=== PATIENT | male | born 1990 | race Caucasian/White ===

== ENCOUNTER 2022-11-23 20:13 | Emergency (ER) | payer MEDICARE, MEDICAID, SELFPAY ==
[2022-11-23 20:24] VITALS: BP 148/78; PULSE 86; O2SAT 97
[2022-11-23 21:00] VITALS: BP 114/56; PULSE 83; RESP 16; TEMP 37; O2SAT 98; BMI 53.1
[2022-11-23] MEDS: Lidocaine HCl 1 % MPF 5 ML VIAL SUBCUT (23:06)
[2022-11-23 23:16] VITALS: BP 116/59; PULSE 76; RESP 18; O2SAT 98
--- NOTE | 2022-11-23 23:34 | ED.GENADULT ---
HPI - General Adult General Chief complaint: General Medical Stated complaint: bleeding from scar Time Seen by Provider: 11/23/22 22:35 History of Present Illness HPI narrative: patient is a 31-year-old male status post using his classes to help his own left thigh. Patient was at [facility] sent in for further evaluation as a history of anxiety. Patient denies any systemic complaints. Related Data Allergies Allergy/AdvReac Type Severity Reaction Status Date / Time No Known Allergies Allergy Verified 11/23/22 22:59 Review of Systems Review of Systems: No nausea no vomiting no other injury Yes all other systems are reviewed and are negative COUNTS INCLUDE 234 BEDS AT THE [facility] Past Medical History Attestation statement: The following information was validated with the patient. Social History Social History Alcohol intake: never Smoked in Last 30 Days: No Use of substances other than those prescribed or required for medical reasons: No Advance Directives: No Advance Directives Information Provided: No Physical Exam ED Vital Signs: Vital Signs - 24 hr 11/23/22 21:00 11/23/22 23:16 Temperature 98.6 F Pulse Rate 83 76 Respiratory Rate 16 18 Blood Pressure 114/56 L 116/59 L Pulse Oximetry 98 98 Oxygen Delivery Method Room Air Room Air BMI result Body Mass Index 53.1 Appearance: Alert. Oriented X3. No acute distress. Eyes: Pupils equal, round and reactive to light. ENT: Pharynx normal. Neck: Normal inspection. Neck supple. No lymph nodes noted. No crepitus CVS: Normal heart rate and rhythm. Pulses normal. Normal S1 and S2 Respiratory: No respiratory distress. Breath sounds normal. No Wheezing. No rales Abdomen: Soft and nontender. No rigidity. No distention. good BS x4 Skin: Skin warm and dry. Normal skin color. Normal skin turgor. there is a 4 cm laceration to the left thigh it was explored to full depth it was down to subcutaneous tissue there is no tendon exposed patient has full range of motion at the thigh and at the knee. Extremities: No lower extremity edema. Neurovascular intact to all extremities. No Lacerations. No Rash Neuro: Oriented X 3. No motor deficit. No sensory deficit. Moving all extermities. No slurred speech Medications Administered Discontinued Medications Generic Name Dose Route Start Last Admin Trade Name Freq PRN Reason Stop Dose Admin Diphtheria/Tetanus/Acell Pertussis 0.5 ml 11/23/22 22:59 11/23/22 23:16 Diphth,Pertus(Acell),Tet Adult 0.5 Ml Syringe IM 11/23/22 23:00 Not Given .ONCE ONE Lidocaine HCl 5 ml 11/23/22 22:59 11/23/22 23:06 Lidocaine Hcl 1 % Mpf 5 Ml Vial SUBCUT 11/23/22 23:00 5 ml ONCE ONE Administration Procedures Laceration Left thigh: Site: other ( left thigh) Side (If applicable): left Size (cm): 4 Description: linear Depth: simple, single layer Local Anesthetic: lidocaine 1% Amount of anesthesia used (mL): 3 Skin layer closed with: nylon Size (cm): 4-0 Number of sutures: 3 Technique: simple, interrupted Medical Decision Making Medical Decision Making MDM Narrative: patient's wound closed. Neurovascularly intact. Tetanus is up-to-date per patient. Will discharge patient home. No evidence for any tendon injury. In stable condition. Documentation from [facility] was reviewed Differential Diagnosis Differential Diagnoses: The differential diagnosis associated with the presentation includes Laceration, tendon injury Discharge Plan Discharge Clinical Impression: Laceration of left thigh Patient Disposition: Home, Self-Care Instructions: Laceration (ED) Additional Instructions: suture removal in 9 days Referrals: Physician,Keanu J [Primary Care Provider] - ( suture removal in approximately 9 days)
--- NOTE | 2022-11-24 01:05 | MHC.EDTECH ---
call out to mati at 0026 to book transport for pt back to [facility], estimated eta given was was 0100
== END 2022-11-24 00:53 | disposition home or self-care (01) ==
PROVIDERS: Emergency Provider Emergency Medicine Emergency Medical Services
DX: S71.112A Laceration without foreign body, left thigh, initial encounter (principal); X58.XXXA Exposure to other specified factors, initial encounter; Y93.9 Activity, unspecified; Y92.9 Unspecified place or not applicable; Y99.9 Unspecified external cause status
CPT/HCPCS: 12002; 99284

== ENCOUNTER 2022-11-25 22:51 | Emergency (ER) | payer MEDICARE, MEDICAID, SELFPAY ==
[2022-11-25 22:59] VITALS: BP 122/90; PULSE 92; O2SAT 98
[2022-11-25 23:08] VITALS: BP 110/52; PULSE 90; RESP 18; TEMP 36.7; O2SAT 95; BMI 54.7
[2022-11-25 23:39] VITALS: BP 108/56; PULSE 96; RESP 16; TEMP 36.5; O2SAT 97
[2022-11-26 00:38] LABS: MANUAL DIFF FLAG NO
[2022-11-26 00:46] LABS: Basophils Absolute Auto 0.1 X10*3/uL (0.0-0.2); Basophils Percent Auto 0.9 % (0-2); Eosinophils Absolute Auto 0.3 X10*3/uL (0.0-0.4); Eosinophils Percent Auto 3.5 % (0-4); Hematocrit 41.1 % (42.0-52.0); Hemoglobin 13.5 g/dl (14.0-18.0); Imm Gran Abs Auto 0.02 X10*3/uL (0.00-0.03); Imm Gran Pct Auto 0.3 % (0.0-0.4); Lymphocytes Absolute Auto 2.8 X10*3/uL (1.2-4.9); Lymphocytes Percent Auto 36.6 % (20-40); Mean Corpuscular HGB Conc 32.8 g/dl (31.0-36.0); Mean Corpuscular Hemoglobin 27.4 pg (27.0-33.0); Mean Corpuscular Volume 83.5 fL (80.0-98.0); Mean Platelet Volume 11.2 fL (9.4-12.4); Monocytes Absolute Auto 0.6 X10*3/uL (0.1-1.2); Monocytes Percent Auto 7.2 % (2-11); Neutrophils Absolute Auto 3.9 x10*3/uL (2.0-8.3); Neutrophils Percent Auto 51.5 % (45-73); Platelet Count 250 X10*3/uL (160-400); Red Blood Count 4.92 X10*6/uL (4.60-5.80); Red Cell Distribution Width 14.6 % (11.0-16.0); White Blood Count 7.6 X10*3/uL (4.8-10.8)
[2022-11-26 00:59] LABS: Appearance Urine Clear; Color Urine Yellow; Glucose Urine UA Negative (Negative); Leukocyte Esterase Urine Negative (Negative); Nitrite Urine Negative (Negative); PH 6.5 (5.0-9.0); Specific Gravity - Urine <= 1.005 (1.005-1.025); UMIC TRIGGER UACC YES; Urine Blood Small (1+) (Negative); Urine Ketones Negative (Negative); Urine Protein Negative (Neg-Trace)
[2022-11-26 01:07] LABS: Alanine Aminotransferase 27 U/L (0-40); Albumin Level 3.8 g/dL (3.5-5.0); Alkaline Phosphatase 119 U/L (39-117); Anion Gap 15 (12-20); Aspartate Amino Transferase 19 U/L (5-37); Bilirubin Total 0.4 mg/dL (0.0-1.0); Blood Urea Nitrogen 10 mg/dL (9-16); Calcium 9.6 mg/dL (8.4-10.2); Carbon Dioxide 22 mmol/L (22-29); Chloride 106 mmol/L (96-108); Creatinine Clr Calc Pharmacy 157.9; Estimated Glomerular Filt Rate > 60; Ethanol < 10 mg/dL; Glucose Random 126 mg/dL (60-115); Sodium 139 mmol/L (135-145); Total Protein 6.5 g/dL (6.5-8.0)
[2022-11-26 01:08] LABS: Amphetamine Screen Urine Not Detected (Not Detect); Barbiturates, Urine Not Detected (Not Detect); Benzodiazepines Screen Urine Not Detected (Not Detect); Cannabinoid Screen Urine Not Detected (Not Detect); Cocaine Screen Urine Not Detected (Not Detect); Fentanyl, urine Not Detected (Not Detect); Opiate Screen Urine Not Detected (Not Detect); Phencyclidine Screen Urine Not Detected (Not Detect)
--- NOTE | 2022-11-26 01:21 | PC.NURSE ---
This RN assumed care of patient. Patient refused bloodwork initially, this RN able to establish therapeutic rapport and attempted bloodwork. Patient allowed for 1:1 tech Nerupa to attempt, bloodwork successful. Patient contracted for safety with this RN, stated that he would be able to make needs known if feeling unsafe. Patient currently has counselor (Mariola) at bedside. Patient currently laying down at this time, will continue to monitor for safety per protocols
[2022-11-26 01:38] LABS: Bacteria Urine None Seen (None Seen); Hyaline Casts Urine 0-2 /LPF (0-2); RBC Urine 0-2 /HPF (0-2); Squamous Epithelial Cell Urine 0-2 /HPF (0-2); WBC Urine 0-5 /HPF (0-5)
--- NOTE | 2022-11-26 02:15 | ED_ITS ---
HPI - General Adult General Chief complaint: Psychiatric Symptoms Stated complaint: SI, pulled out sutures from self inflicted injury Time Seen by Provider: 11/25/22 23:27 Source: patient and other Mode of arrival: EMS History of Present Illness HPI narrative: 31-year-old male is brought in by EMS from [facility] staff on a section 21 with one-to-one nursing and chronic suicidal ideation for evaluation after patient pull sutures out of the left thigh at approximately 20:00 with an episode of head banging. Patient was medicated for behavior prior to EMS transport. Patient states that he has these compelling urges the do not subside until he completes the action. Related Data Allergies Allergy/AdvReac Type Severity Reaction Status Date / Time quetiapine [From Seroquel] Allergy Swelling Verified 11/25/22 23:06 trazodone Allergy Swelling Verified 11/25/22 23:06 Review of Systems 2 Review of Systems: Pertinent positives and negatives as stated in HPI PMFSH Past Medical History Source: nursing notes reviewed Social History Social History Alcohol intake: never Advance Directives: No Advance Directives Information Provided: Yes Physical Exam ED Vital Signs: Vital Signs - 24 hr 11/25/22 23:08 11/25/22 23:39 Temperature 98.1 F 97.7 F Pulse Rate 90 96 Respiratory Rate 18 16 Blood Pressure 110/52 L 108/56 L Pulse Oximetry 95 97 Oxygen Delivery Method Room Air Room Air BMI result Body Mass Index 54.7 VITAL SIGNS: Reviewed. GENERAL: Well developed, well nourished, in no acute distress. HEAD: Normocephalic/atraumatic EYES: PERRLA, EOMI EARS: Ext canals without abnormality NOSE: Nares patent bilateral OROPHARYNX: no oral lesions noted, posterior pharynx clear NECK: Supple, no adenopathy LUNGS: Normal breath sounds. No adventitious sounds or accessory muscle use. SpO2<97> CARDIOVASCULAR: Regular rate and rhythm without noted murmurs ABDOMEN: Soft, non-tender, non-distended with bowel sounds. MUSCULOSKELETAL: No tenderness, deformities, or effusions noted on gross inspection. EXTREMITIES: No cyanosis, clubbing or edema. RUE: multiple areas of superficial cutting to arm LLE: Sutures removed but wound appears clean. SKIN: Inspection of the skin reveals no rashes NEUROLOGIC: Alert and oriented x 4. Strength and sensation to light touch were grossly intact x 4. Medical Decision Making Medical Decision Making MDM Narrative: 31-year-old male who is brought in by EMS by [facility], the do not need any evaluation at this time other than just evaluation of the wound. I looked at the wound to the left lower extremity upper thigh, it is clean, I irrigated it well and placed a small wick into the wound in it will be able out to heal secondarily. There is no surrounding erythema or induration and does not require antibiotics. The wick can be removed in 24 hours. Differential Diagnosis Differential Diagnoses: The differential diagnosis associated with the presentation includes Please see the discussion above Admission/Observation Consideration of admission/observation: Escalation of care including admission/observation considered Please see the discussion above Lab Data 11/26/22 00:34 11/26/22 00:37 Labs: Lab Results 11/26/22 11/26/22 11/26/22 Range/Units 00:34 00:37 00:49 WBC 7.6 (4.8-10.8) X10*3/uL RBC 4.92 (4.60-5.80) X10*6/uL Hgb 13.5 L (14.0-18.0) g/dl Hct 41.1 L (42.0-52.0) % MCV 83.5 (80.0-98.0) fL MCH 27.4 (27.0-33.0) pg MCHC 32.8 (31.0-36.0) g/dl RDW 14.6 (11.0-16.0) % Plt Count 250 (160-400) X10*3/uL MPV 11.2 (9.4-12.4) fL Immature Gran % (Auto) 0.3 (0.0-0.4) % Neut % (Auto) 51.5 (45-73) % Lymph % (Auto) 36.6 (20-40) % Hawkins % (Auto) 7.2 (2-11) % Eos % (Auto) 3.5 (0-4) % Baso % (Auto) 0.9 (0-2) % Lymph # (Auto) 2.8 (1.2-4.9) X10*3/uL Hawkins # (Auto) 0.6 (0.1-1.2) X10*3/uL Eos # (Auto) 0.3 (0.0-0.4) X10*3/uL Baso # (Auto) 0.1 (0.0-0.2) X10*3/uL Abs Immat Gran (auto) 0.02 (0.00-0.03) X10*3/uL Absolute Neuts (auto) 3.9 (2.0-8.3) x10*3/uL Absolute Nucleated RBC 0.000 (0.0-0.012) X10*3/uL Nucleated RBC % (auto) 0.0 (0.0-0.2) /100WBC Sodium 139 (135-145) mmol/L Potassium 4.0 (3.3-5.1) mmol/L Chloride 106 (96-108) mmol/L Carbon Dioxide 22 (22-29) mmol/L Anion Gap 15 (12-20) BUN 10 (9-16) mg/dL Creatinine 0.88 (0.5-1.4) mg/dL Estim Creat Clear Calc 157.9 Estimated GFR > 60 Random Glucose 126 H (60-115) mg/dL Calcium 9.6 (8.4-10.2) mg/dL Total Bilirubin 0.4 (0.0-1.0) mg/dL AST 19 (5-37) U/L ALT 27 (0-40) U/L Alkaline Phosphatase 119 H (39-117) U/L Total Protein 6.5 (6.5-8.0) g/dL Albumin 3.8 (3.5-5.0) g/dL Urine Color Yellow Urine Appearance Clear Urine pH 6.5 (5.0-9.0) Ur Specific [place] <= 1.005 (1.005-1.025) Urine Protein Negative (Neg-Trace) mg/dL Urine Glucose (UA) Negative (Negative) mg/dL Urine Ketones Negative (Negative) mg/dL Urine Blood Small (1+) H (Negative) Urine Nitrite Negative (Negative) Ur Leukocyte Esterase Negative (Negative) Urine RBC 0-2 (0-2) /HPF Urine WBC 0-5 (0-5) /HPF Ur Squamous Epith Cells 0-2 (0-2) /HPF Urine Bacteria None Seen (None Seen) Hyaline Casts 0-2 (0-2) /LPF Urine Opiates Screen Not Detected (Not Detect) Urine Fentanyl Screen Not Detected (Not Detect) Ur Barbiturates Screen Not Detected (Not Detect) Ur Phencyclidine Scrn Not Detected (Not Detect) Ur Amphetamines Screen Not Detected (Not Detect) U Benzodiazepines Scrn Not Detected (Not Detect) Urine Cocaine Screen Not Detected (Not Detect) U Marijuana (THC) Screen Not Detected (Not Detect) Ethyl Alcohol < 10 mg/dL Discharge Plan Discharge Clinical Impression: Visit for wound check Patient Disposition: Home, Self-Care Additional Instructions: Okay to leave wound as is, remove the wick and 24 hours. Apply antibiotic ointment like bacitracin to any superficial cutting sites. Return to the ER for any fevers, chills, redness or swelling or purulence drainage.
[2022-11-26 02:17] VITALS: BP 97/53; PULSE 86; RESP 16; TEMP 36.7; O2SAT 98
--- NOTE | 2022-11-26 06:15 | PC.NURSE ---
assumed care of pt at this time, pt discharged and awaiting ambulance ride back to [facility] in [place]. observer in [place] at bedside
[2022-11-26 06:19] VITALS: BP 118/62; PULSE 86; RESP 16; TEMP 36.4; O2SAT 98
== END 2022-11-26 06:50 | disposition home or self-care (01) ==
PROVIDERS: Emergency Provider Student in an Organized Health Care Education/Training Program
DX: R45.851 Suicidal ideations (principal); Z48.00 Encounter for change or removal of nonsurgical wound dressing; Z79.899 Other long term (current) drug therapy
CPT/HCPCS: 36415; 80053; 80307; 81001; 81003; 85025; 99284

== ENCOUNTER 2022-11-27 00:27 | Emergency (ER) | payer MEDICARE, MEDICAID, SELFPAY ==
[2022-11-27 00:40] VITALS: BP 112/59; BP 158/68; PULSE 84; PULSE 87; RESP 14; TEMP 36.5; O2SAT 99; BMI 38.6
--- NOTE | 2022-11-27 00:45 | PC.NURSE ---
patient reports lifting a whiteboard up and stumbling backwards, he fell and hit the back of his head on a bannister. Per staff he was unconscious for about 2 seconds then came to. Staff provided him with Tylenol which he stated helped for a little bit but he developed a big headache. Pt reports that the headache travels around to different parts of his head. No dizziness at this time, no nausea and no vomiting Patient is in clothing from [facility], no ligature risk identified, patient has 1:1 staff from [facility] as well as 1:1 staff here for safety due to SI risk
--- NOTE | 2022-11-27 01:24 | ED.FALL ---
HPI - Fall General Chief Complaint: Head Injury Stated Complaint: injury Time Seen by Provider: 11/27/22 00:49 Source: patient and other Mode of arrival: ambulatory History of Present Illness HPI Narrative: 31-year-old patient who is brought in for evaluation after a fall backwards with a strike of his head on the banister that was witnessed by staff. Patient is endorsing a very transient loss of consciousness and no history of blood thinners. Related Data Allergies Allergy/AdvReac Type Severity Reaction Status Date / Time quetiapine [From Seroquel] Allergy Swelling Verified 11/25/22 23:06 trazodone Allergy Swelling Verified 11/25/22 23:06 Review of Systems Review of Systems: Pertinent positives and negatives as stated in HPI [facility] Past Medical History Source: nursing notes reviewed Social History Social History Alcohol intake: never Smoked in Last 30 Days: No Use of substances other than those prescribed or required for medical reasons: No Physical Exam Vital Signs: Vital Signs: Last Vital Signs Temp 97.7 F 11/27/22 00:40 Pulse 99 11/27/22 02:13 Resp 14 11/27/22 00:40 BP 101/59 L 11/27/22 02:13 Pulse Ox 99 11/27/22 00:40 O2 Del Method Room Air 11/27/22 00:40 BMI result Body Mass Index 38.6 VITAL SIGNS: Reviewed. GENERAL: Well developed, well nourished, in no acute distress. HEAD: Normocephalic/atraumatic EYES: PERRLA, EOMI EARS: Ext canals without abnormality NOSE: Nares patent bilateral OROPHARYNX: no oral lesions noted, posterior pharynx clear NECK: Supple, no adenopathy LUNGS: Normal breath sounds. No adventitious sounds or accessory muscle use. SpO2<99> CARDIOVASCULAR: Regular rate and rhythm without noted murmurs ABDOMEN: Soft, non-tender, non-distended with bowel sounds. MUSCULOSKELETAL: No tenderness, deformities, or effusions noted on gross inspection. EXTREMITIES: No cyanosis, clubbing or edema. SKIN: Inspection of the skin reveals no rashes, superficial lacerations to right upper extremity, the same as last time NEUROLOGIC: Alert and oriented x 4. Strength and sensation to light touch were grossly intact x 4. Medical Decision Making Medical Decision Making [facility] Narrative: 31-year-old male with history and clinical presentation consistent with mechanical fall with transient loss of consciousness, there are no clinical findings of scalp injury. There are no focal deficits. Will proceed with orthostatics and if not positive will discharge back to facility. Patient was worked up here yesterday without acute findings. I reviewed the orthostatics on the patient which demonstrates a drop in blood pressure, but is my interpretation that this may be secondary to patient's medications such as gabapentin and/or clonazepam dosing. Also recommend increase oral hydration, there is no physical impediment to patient drinking more water. Differential Diagnosis Differential Diagnoses: The differential diagnosis associated with the presentation includes Please see the discussion above Admission/Observation Consideration of admission/observation: Escalation of care including admission/observation considered Please see the discussion above Discharge Plan Discharge Clinical Impression: Fall with no injury, Mild dehydration Patient Disposition: Xfer Other Instructions: Fall Prevention (ED), Dehydration (ED) Additional Instructions: 1. Resume all home medications as prescribed. 2. Consider medication adjustment if patient continues to feel lightheaded as this may be contributing to the falls.
[2022-11-27 02:10] VITALS: BP 127/59; PULSE 86
[2022-11-27 02:11] VITALS: BP 106/62; PULSE 90
[2022-11-27 02:13] VITALS: BP 101/59; PULSE 99
--- NOTE | 2022-11-27 02:21 | PC.NURSE ---
patient resting on stretcher in hallways, offers no complaints to this RN. Pt was beginning to get agitated earlier d/t 1:1 sitter not letting him walk around. This RN explained to patient that he cannot walk around and has to stay in bed. Pt agreed but verbalizes being upset about it
== END 2022-11-27 03:37 | disposition other institution (70) ==
LOC: HO.ED 02:47
PROVIDERS: Emergency Provider Student in an Organized Health Care Education/Training Program
DX: E86.0 Dehydration (principal); R51.9 Headache, unspecified
CPT/HCPCS: 99283; 99284

== ENCOUNTER 2023-01-07 19:42 | Emergency (ER) | payer MEDICARE, MEDICAID, SELFPAY ==
--- NOTE | ~2023-01-07 | XR_ITS ---
EXAMINATION: XR FOOT, LEFT CLINICAL INFORMATION: Trauma 3 weeks ago COMPARISON: None available. TECHNIQUE: AP, lateral, and oblique views of the left foot. FINDINGS: Bones are in normal anatomic alignment with no acute fracture or dislocation seen. Small calcaneal heel spur is noted at the attachment point of the plantar aponeurosis. No radiopaque foreign body appreciated. Mild soft tissue swelling of the forefoot. XR/XR foot LT min 3V IMPRESSION: Mild soft tissue swelling but no acute fracture or dislocation.
[2023-01-07 19:52] VITALS: BP 138/92; PULSE 91; O2SAT 99
[2023-01-07 19:59] VITALS: BP 137/83; PULSE 93; RESP 16; O2SAT 98
[2023-01-07 20:08] VITALS: BMI 51.1
--- NOTE | 2023-01-07 20:09 | ED_ITS ---
HPI - General Adult General Chief complaint: Extremity Injury, Lower Stated complaint: FREQUENT URINATION FOOT PAIN Time Seen by Provider: 01/07/23 19:59 Source: patient Limitations: no limitations History of Present Illness HPI narrative: 32 years old past medical history of anxiety, depression, fibromyalgia, presents emergency room for evaluation of left foot pain. Patient reports that during and anger outburst 3 weeks ago he kicked a wall several time and that since then his left foot is being sore. Patient reports that pain is moderate in intensity, localized on the lateral aspect of his foot. Patient has been able to weightbear. In addition patient reports that he has being having increased urinary frequency for which a UA was done last Friday and which was negative. Patient reports that he discussed this finding with his doctor at [facility] and that they will stop TCA. Discussed case with [facility] staff at bedside, patient has expressed suicidal ideation and homicidal ideation however the concern today is not psychiatric and is just to make sure he does not have a fracture. Related Data Allergies Allergy/AdvReac Type Severity Reaction Status Date / Time quetiapine [From Seroquel] Allergy Swelling Verified 11/25/22 23:06 trazodone Allergy Swelling Verified 11/25/22 23:06 Review of Systems 2 Review of Systems: Yes all other systems are reviewed and are negative [facility] Social History Social History Alcohol intake: never Advance Directives: No Advance Directives Information Provided: No Physical Exam ED Vital Signs: Vital Signs - 24 hr 01/07/23 19:59 Pulse Rate 93 Respiratory Rate 16 Blood Pressure 137/83 Pulse Oximetry 98 Oxygen Delivery Method Room Air BMI result Body Mass Index 51.1 General: Alert, Not in Distress Skin: No rash, warm HEENT: Atraumatic, No Exudate or Pharyngeal Erythema Resp: Normal Breath sounds bilaterally Cardio: Regular rate and Rhythm, Normal S1, S2 ABD: Abd soft, non tender, no guarding or rebound. Normal Bowel sounds. : No cva tenderness, no suprapubic tenderness Neuro: Alert, oriented x4, PERRL Strenght 5/5 on all extremities Sensation is preserved in both lower and upper extremities Index to nose: normal Cranial Nerves II-XII grossly intact No dysarthria, or aphasia No neglet. Visual vasquez are normal bilaterally MSK: NV intact on all 4 extremities. mild tenderness on palpation of the lateral aspect of the Left foot. L Ankle not deformed with normal ROM Psych: Cooperative, SI and HI. Course Reevaluation(s) Reevaluation #1: XR foot was unremarkable. Likely pain is secondary to foot contusion. UA pending. Time: 20:38 Reevaluation #2: UA unremarkable. unllikely UTI. Will hold on antibiotics. Will DC back to facility. Time: 21:31 Medications Administered Discontinued Medications Generic Name Dose Route Start Last Admin Trade Name Meri PRN Reason Stop Dose Admin Acetaminophen 975 mg 01/07/23 20:08 01/07/23 20:41 Acetaminophen 325 Mg Tablet PO 01/07/23 20:09 975 mg ONCE ONE Administration Ibuprofen 600 mg 01/07/23 20:08 01/07/23 20:40 Ibuprofen 600 Mg Tablet PO 01/07/23 20:09 600 mg ONCE ONE Administration Medical Decision Making Medical Decision Making MDM Narrative: 32 years old with history of SI and HI, presents emergency room for evaluation of left foot pain. Foot not deformed, NV intact. Patient kicked a wall several times few weeks ago. Impression: foot contusion, Foot fracture, UTI, medication reaction Plan: imaging, analgesia, UA Admission/Observation Consideration of admission/observation: Escalation of care including admission/observation considered Staff not concerned for SI or HI Lab Data Labs: Lab Results 01/07/23 Range/Units 20:43 Urine Color Yellow Urine Appearance Clear Urine pH 6.0 (5.0-9.0) Ur Specific [place] 1.010 (1.005-1.025) Urine Protein Negative (Neg-Trace) mg/dL Urine Glucose (UA) Negative (Negative) mg/dL Urine Ketones Negative (Negative) mg/dL Urine Blood Negative (Negative) Urine Nitrite Negative (Negative) Ur Leukocyte Esterase Negative (Negative) Independent Interpretation I performed an independent interpretation of an: Plain X-Ray (XR foot: no fracture) Discharge Plan Discharge Clinical Impression: Contusion of foot Patient Disposition: Home, Self-Care Instructions: Foot Contusion (ED) Additional Instructions: You were seen emergency room for foot pain. X-ray did not show any fracture Likely pain is secondary to foot contusion. Continue to keep foot elevated when at rest, you can use Tylenol 1000 mg up to 4 times a day for pain control.
[2023-01-07] MEDS: Ibuprofen 600 MG TABLET PO (20:40)
[2023-01-07] MEDS: Acetaminophen 325 MG TABLET 975 MG PO (20:41)
[2023-01-07 20:51] LABS: Appearance Urine Clear; Color Urine Yellow; Glucose Urine UA Negative (Negative); Leukocyte Esterase Urine Negative (Negative); Nitrite Urine Negative (Negative); Urine Blood Negative (Negative); Urine Ketones Negative (Negative); Urine Protein Negative (Neg-Trace)
[2023-01-07 21:40] VITALS: BP 132/82; PULSE 85; RESP 18; O2SAT 95
--- NOTE | 2023-01-07 22:07 | PC.NURSE ---
pt awaiting transport back to [facility]
== END 2023-01-07 22:57 | disposition home or self-care (01) ==
PROVIDERS: Emergency Provider Student in an Organized Health Care Education/Training Program
DX: S90.32XA Contusion of left foot, initial encounter (principal); W22.09XA Striking against other stationary object, initial encounter; Y93.89 Activity, other specified; Y92.049 Unspecified place in boarding-house as the place of occurrence of the external cause; Y99.9 Unspecified external cause status
CPT/HCPCS: 73630; 81003; 99283; 99284

== ENCOUNTER 2024-03-27 01:14 | Inpatient (IN) | payer MEDICARE, MEDICAID, SELFPAY ==
[2024-03-27 03:20] VITALS: BMI 52.5
--- NOTE | 2024-03-27 04:34 | PC.ADMIT ---
Darion is a 33 year old transgender female to male admitted on a 12b for self injurious urges and reporting that he wanted to overdose on his prescription medications. Darion is alert and oriented X's 4. he is cooperative but hyper-verbal and tangential with rapid pressured speech. He is difficult to redirect and has a hard time staying on task. He states that he wants the doctor to approve [him] to be admitted to a [facility]. I need to have a long hospitalization. A few days or a week here is not going to be enough. I need to go to like [facility] or something. I hope they're not going to do what all the other hospital do. You're not going to just have me here for a couple of days and then discharge me right? I need like 3 or 4 months to be able to see if the medications are really working and to see if I have really learned the coping techniques. Darion also reports that he has auditory/visual hallucinations. I see things like fire and stuff like that when I wake up but I think it's dream related because it only happens just as I'm waking up. I have 2 others inside of me one is 'Jacque Orlando' and the other is 'The Beast'. Jacque Orlando is like my protector he runs around with his little foam sword and his plastic shield and he helps me stop The Beast. Jacque Orlando runs around saying 'I'm here to stay I'm here to play'. The Beast is the one that tells me to hurt myself. When I get really angry, out of control, and start thinking about hurting myself or people that's all The Beast. I've been hospitalized over 60 times. I've been trained in all the techniques you guys use to hold people or to restrain them. I know how to get out of everything. I know to use an alligator move, I spin twist or turn around causing all you guys to crash into each other. Last time I was restrained it took 10 men to get me into the chair. I'm very sneaky. If I want to hurt myself or to punish myself I will take things and you wont even know. I've put entire pencils into my leg. I've put crayons into it too. If I want to do it you guys will never see me take anything and you wont find me. I'm good at hiding in the bathroom or some other hidden place and by the time you find me I will have already cut myself or ripped my arm open . all admission documentation completed, patient orient to the unit and placed on Q5 minute safety check r/t reports of urges to engage in self injurious behaviors.
[2024-03-27 07:44] VITALS: BP 123/62; PULSE 88; RESP 16; TEMP 36.6; O2SAT 96
[2024-03-27 07:57] LABS: Alanine Aminotransferase 33 U/L (0-40); Albumin Level 4.3 g/dL (3.5-5.0); Anion Gap 13 (12-20); Aspartate Amino Transferase 24 U/L (5-37); Bilirubin Total 0.7 mg/dL (0.0-1.0); Blood Urea Nitrogen 11 mg/dL (9-16); Calcium 9.7 mg/dL (8.4-10.2); Carbon Dioxide 28 mmol/L (22-29); Chloride 105 mmol/L (96-108); Creatinine Clr Calc Pharmacy 126.7; Estimated Glomerular Filt Rate > 60; Glucose Random 99 mg/dL (60-115); Potassium 4.4 mmol/L (3.3-5.1); Sodium 142 mmol/L (135-145); Total Protein 7.6 g/dL (6.5-8.0)
[2024-03-27 08:12] LABS: Alkaline Phosphatase 89 U/L (39-117)
--- NOTE | 2024-03-27 10:33 | P.HPPS_ITS ---
HPI Date of Service: 03/27/24 Chief Complaint: unspecified PTSD, personality D/O unspecified Sources of Information: patient interviewed, chart reviewed and crisis/core team assessment reviewed HPI Subjective Notes: Section 12B Narrative: The patient is a 33-year-old transgender male, currently homeless, recently relocated from [place] to [place] a week ago with a past history of mood disorder, several psychiatric admissions and self-harming behavior. The patient reported that he left the detention on [place] and moved to live with family [place]. He spent a few days in a detention and later on at another facility. He walking to the emergency room of [facility] in [place] complaining of suicidal ideation. The patient reported that he has multiple personality disorder, that he usually gets suicidal and self harms and he admitted that he had been admitted several times into the hospital for self- harming behavior. He was assessed by crisis and transferring to this facility for psychiatric stabilization. While he was in the unit, after the assessment of nursing, the patient grabbed a fork and he opened a wound that he had on his leg stating that the devil and the voices were telling to do that. Even though that he complained of psychotic symptoms the patient is well oriented, able to respond to redirection and without a clear evidence of thought process disorder. During the intake interview, I explained him that since he had been self-harming we can not allow him to be in the kitchen by himself, we decided to put some safety measures to avoid self-harming and I contact the hospitalist team for assessment of his lesion in the leg. The patient stated that he did not do this for attention seeking or secondary gain since and he was very worried about housing and other entitlements. He stated that he feels worse since the disease close to the 8th anniversary of a miscarriage that he had. We did a medication reconciliation and he had been taking gabapentin Zyprexa and Valium. We are keeping him on 5 minute checks. Past Psychiatric History: As per the patient he had been admitted more than 20 times in different facilities in [place] and he was in a detention while he was residing in [place]. He recently moved to [place] 2 weeks ago. Medical Evaluation Reviewed: Hospitalist Eval Pending [facility] Social History: Homeless, no social support as per the patient Substance History: Denies Trauma History: Reports a long history of trauma. Diagnostics Vital Signs (24Hr): Vital Signs - 24 hr 03/27/24 07:44 Temperature 97.8 F Pulse Rate 88 Respiratory Rate 16 Blood Pressure 123/62 Pulse Oximetry 96 Oxygen Delivery Method Room Air BMI result Body Mass Index 52.5 Labs 03/27/24 07:26 Labs: Laboratory Results - last 48 hr 03/27/24 07:26 Sodium 142 Potassium 4.4 Chloride 105 Carbon Dioxide 28 Anion Gap 13 BUN 11 Creatinine 1.05 Estim Creat Clear Calc 126.7 Estimated GFR > 60 Random Glucose 99 Calcium 9.7 Total Bilirubin 0.7 AST 24 ALT 33 Alkaline Phosphatase 89 Total Protein 7.6 Albumin 4.3 Meds/Allergies Meds Home Medications ?Medication ?Instructions ?Recorded ?Confirmed ?Type diazepam 5 mg tablet 5 mg PO TID 03/27/24 03/27/24 History diphenhydramine HCl 50 mg capsule 50 mg PO BEDTIME PRN Insomnia 03/27/24 03/27/24 History gabapentin 800 mg tablet 800 mg PO TID 03/27/24 03/27/24 History olanzapine 10 mg tablet 10 mg PO BEDTIME 03/27/24 03/27/24 History oxybutynin chloride 5 mg tablet 5 mg PO BID 03/27/24 03/27/24 History pantoprazole 40 mg tablet,delayed 40 mg PO DAILY 03/27/24 03/27/24 History release propranolol 20 mg tablet 20 mg PO TID 03/27/24 03/27/24 History tolterodine 2 mg capsule,extended 2 mg PO DAILY 03/27/24 03/27/24 History release 24 hr (Detrol [facility]) Allergies Allergies Allergy/AdvReac Type Severity Reaction Status Date / Time quetiapine [From Seroquel] Allergy Swelling Verified 11/25/22 23:06 trazodone Allergy Swelling Verified 11/25/22 23:06 fluoxetine [From Prozac] AdvReac Dry Mucus Verified 03/27/24 03:24 Membranes Mental Status Exam Mental Status Exam Patient Appearance: Unkempt Patient Orientation: Person, Place and Situation Level of Consciousness: Awake and Appropriate Patient Behavior: Appropriate and Guarded Mood Description: Calm Affect Description: Constricted Ability to Follow Directions: Good Speech Pattern: Clear Hallucinations: Auditory (Reports auditory hallucinations but there is no evidence of responding to internal stimuli) Delusions: Paranoid Ideation Thought Process: Goal Oriented and Linear Thought Content: positive for [place] and positive for Circumstantial Judgement: Poor Assessment & Plan Assessment & Plan (1) Psychotic disorder: Status: Acute Code(s): F29 - Unspecified psychosis not due to a substance or known physiological condition (2) Mood disorder: Status: Acute Code(s): F39 - Unspecified mood [affective] disorder (3) Personality disorder: Status: Acute Code(s): F60.9 - Personality disorder, unspecified Plan The patient is a 33-year-old male transgender female to male, resident relocated in [place] from [place] that used to be on group homes and had several admissions into the hospital for self-harming behavior and psychosis. The patient stated that he is feeling suicidal and he was looking for help. While he was in the unit he open with a fork a wanted he has on his LEs stating that the voices were forced into do that. 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 Plan 1. Gather collateral information. 2. Continue with Zyprexa gabapentin and Valium as per med reconciliation form. 3. Referral to hospitalist for medical clearance. 4. Reassessment with results. 5. 5 minute checks but the patient is restricted from the kitchen to avoid self- harming behavior. Patient educated on: diagnosis Reason for continued inpatient stay Substantial Risk for: inability to function, rapid decompensation and med/psych decompensation Statement Statement: I have reviewed the history and physical and performed a pertinent examination on my patient. No changes have occurred unless specified. If the History and Physical was not performed prior to admission, the Hospitalist's service will be consulted for completing the admission physical. Time Spent With Patient Time: Total time managing care of this patient today __20__ minutes.
--- NOTE | 2024-03-27 11:35 | P.CONHOSP_ITS ---
History of Present Illness Data of Consult Service Date: 03/27/24 Primary Care Provider: Petty Fallon MD HPI Reason for consult: Admission H&P Pt is a 33-year-old female with a PMH significant for?HTN, fibromyalgia, anxiety, and depression who is admitted to [facility] psychiatry unit for . Medical consult for admission H&P. ? Labs reviewed, significant for PMFSH Social History Household Members: Other Household Members Other:: rent a room Housing: House Do you presently have visiting nurse or other home services: No Alcohol intake: never Patient Tobacco Use Status: Never used Tobacco Use of substances other than those prescribed or required for medical reasons: No Currently Displaying Signs/Symptoms of Drug Intoxication Withdrawal: No Any prior treatment program specific to substance use: No Have you been hit, kicked, punched, or otherwise hurt by someone within the past year? If so, by whom?: No Do you feel safe in your current relationship?: No Current Relationship Is there a partner from a previous relationship who is making you feel unsafe now?: No Are you made to feel afraid or neglected: No Advance Directives: No Advance Directives Information Provided: Yes Do you have thoughts of harming others: None Do you have a plan to hurt others: No Plan Recently lost weight without trying: Yes How much weight loss: 24-33 pounds Eating poorly because of decreased appetite: Yes Nutrition screen score: 6 Nutrition Risks: No Nutritional Risk Poor oral hygiene: No Meds Allergies Allergy/AdvReac Type Severity Reaction Status Date / Time quetiapine [From Seroquel] Allergy Swelling Verified 11/25/22 23:06 trazodone Allergy Swelling Verified 11/25/22 23:06 fluoxetine [From Prozac] AdvReac Dry Mucus Verified 03/27/24 03:24 Membranes Active Medications: Current Medications Acetaminophen (Acetaminophen 325 Mg Tablet) 650 mg PO Q6H PRN PRN Reason: Headache/Pain Mild Scale (1-3) Al Hydroxide/Mg Hydroxide (Magnesium Hydrox/Alum Hydrox 30 Ml Oral.Susp) 30 ml PO Q6H PRN PRN Reason: Heartburn/Nausea Diazepam (Diazepam 5 Mg Tablet) 5 mg PO TID [facility] Diphenhydramine HCl (Diphenhydramine Hcl 25 Mg Capsule) 50 mg PO BEDTIME PRN PRN Reason: Insomnia Gabapentin (Gabapentin 400 Mg Capsule) 800 mg PO TID [facility] Hydroxyzine HCl (Hydroxyzine Hcl 25 Mg Tablet) 25 mg PO Q6H PRN PRN Reason: Anxiety Magnesium Hydroxide (Milk Of Magnesia 30 Ml Oral.Susp) 30 ml PO DAILY PRN PRN Reason: Constipation Nicotine Polacrilex (Nicotine Polacrilex 2 Mg Gum) 2 mg BUCCAL Q2H PRN PRN Reason: Nicotine Cravings Olanzapine (Olanzapine 10 Mg Tablet) 10 mg PO BEDTIME [facility] Oxybutynin Chloride (Oxybutynin Chloride Er 5 Mg Tab.Er.24) 5 mg PO DAILY [facility] Pantoprazole Sodium (Pantoprazole Sodium 20 Mg Tablet.Dr) 40 mg PO DAILY [facility] Propranolol HCl (Propranolol Hcl 20 Mg Tablet) 20 mg PO TID [facility]; Protocol Home Medications ?Medication ?Instructions ?Recorded ?Confirmed ?Last Taken ?Type diazepam 5 mg tablet 5 mg PO TID 03/27/24 03/27/24 Unknown History diphenhydramine HCl 50 mg capsule 50 mg PO BEDTIME PRN Insomnia 03/27/24 03/27/24 Unknown History gabapentin 800 mg tablet 800 mg PO TID 03/27/24 03/27/24 Unknown History olanzapine 10 mg tablet 10 mg PO BEDTIME 03/27/24 03/27/24 Unknown History oxybutynin chloride 5 mg tablet 5 mg PO BID 03/27/24 03/27/24 Unknown History pantoprazole 40 mg tablet,delayed 40 mg PO DAILY 03/27/24 03/27/24 Unknown History release propranolol 20 mg tablet 20 mg PO TID 03/27/24 03/27/24 Unknown History tolterodine 2 mg capsule,extended 2 mg PO DAILY 03/27/24 03/27/24 Unknown History release 24 hr (Detrol [facility]) Physical Exam 2 Vital Signs and Narrative: Vital Signs: Last Vital Signs Temp 97.8 F 03/27/24 07:44 Pulse 88 03/27/24 07:44 Resp 16 03/27/24 07:44 BP 123/62 03/27/24 07:44 Pulse Ox 96 03/27/24 07:44 O2 Del Method Room Air 03/27/24 07:44 BMI result Body Mass Index 52.5 Results Labs 03/27/24 07:26 Labs: Laboratory Results - last 24 hr 03/27/24 07:26 Anion Gap 13 Estim Creat Clear Calc 126.7 Estimated GFR > 60 Random Glucose 99 Calcium 9.7 Total Bilirubin 0.7 AST 24 ALT 33 Alkaline Phosphatase 89 Total Protein 7.6 Albumin 4.3
[2024-03-27] MEDS: oxyBUTYnin chloride ER 5 MG TAB.ER.24 PO (11:39)
[2024-03-27] MEDS: Pantoprazole Sodium 20 MG TABLET.DR 40 MG PO (11:40)
--- NOTE | 2024-03-27 11:40 | PHA.MEDREC ---
Pharmacy Consult ? Medication Reconciliation Pharmacy has completed the medication reconciliation. REVIEWED MED REC DONE BY NURSING: RN CALLED [facility] IN [place] ([phone]) TO CONFIRM MEDICATIONS AND SPOKE TO DEZ.
--- NOTE | 2024-03-27 14:44 | HO.PM.IMCN ---
History of Present Illness Data of Consult Service Date: 03/27/24 Primary Care Provider: Petty Fallon MD HPI 33-year-old transgender man transferred from out of town with a history of mental health illness, GERD admitted to psychiatric floor for mental health care, suicidal ideation. Vital signs are stable, BNP within normal limits Review of Systems Review of Systems: Denies any recent fever chills or decrease in appetite respiratory denies any shortness of breath coverage production cardiovascular is adjustment of any PND or edema gastrointestinal denies any dysphagia abdominal pain nausea vomiting or diarrhea genitourinary denies any dysuria frequency or hematuria musculoskeletal denies any joint pain or swelling neuropsych denies any weakness or seizures all other systems reviewed are negative [facility] Social History Household Members: Other Household Members Other:: rent a room Housing: House Do you presently have visiting nurse or other home services: No Alcohol intake: never Patient Tobacco Use Status: Never used Tobacco Use of substances other than those prescribed or required for medical reasons: No Currently Displaying Signs/Symptoms of Drug Intoxication Withdrawal: No Any prior treatment program specific to substance use: No Have you been hit, kicked, punched, or otherwise hurt by someone within the past year? If so, by whom?: No Do you feel safe in your current relationship?: No Current Relationship Is there a partner from a previous relationship who is making you feel unsafe now?: No Are you made to feel afraid or neglected: No Advance Directives: No Advance Directives Information Provided: Yes Do you have thoughts of harming others: None Do you have a plan to hurt others: No Plan Recently lost weight without trying: Yes How much weight loss: 24-33 pounds Eating poorly because of decreased appetite: Yes Nutrition screen score: 6 Nutrition Risks: No Nutritional Risk Poor oral hygiene: No Meds Allergies Allergy/AdvReac Type Severity Reaction Status Date / Time quetiapine [From Seroquel] Allergy Swelling Verified 11/25/22 23:06 trazodone Allergy Swelling Verified 11/25/22 23:06 fluoxetine [From Prozac] AdvReac Dry Mucus Verified 03/27/24 03:24 Membranes Active Medications: Current Medications Acetaminophen (Acetaminophen 325 Mg Tablet) 650 mg PO Q6H PRN PRN Reason: Headache/Pain Mild Scale (1-3) Al Hydroxide/Mg Hydroxide (Magnesium Hydrox/Alum Hydrox 30 Ml Oral.Susp) 30 ml PO Q6H PRN PRN Reason: Heartburn/Nausea Diazepam (Diazepam 5 Mg Tablet) 5 mg PO TID [facility] Diphenhydramine HCl (Diphenhydramine Hcl 25 Mg Capsule) 50 mg PO BEDTIME PRN PRN Reason: Insomnia Gabapentin (Gabapentin 400 Mg Capsule) 800 mg PO TID [facility] Hydroxyzine HCl (Hydroxyzine Hcl 25 Mg Tablet) 25 mg PO Q6H PRN PRN Reason: Anxiety Magnesium Hydroxide (Milk Of Magnesia 30 Ml Oral.Susp) 30 ml PO DAILY PRN PRN Reason: Constipation Nicotine Polacrilex (Nicotine Polacrilex 2 Mg Gum) 2 mg BUCCAL Q2H PRN PRN Reason: Nicotine Cravings Olanzapine (Olanzapine 10 Mg Tablet) 10 mg PO BEDTIME [facility] Oxybutynin Chloride (Oxybutynin Chloride Er 5 Mg Tab.Er.24) 5 mg PO DAILY [facility] Last Admin: 03/27/24 11:39 Dose: 5 mg Pantoprazole Sodium (Pantoprazole Sodium 20 Mg Tablet.Dr) 40 mg PO DAILY [facility] Last Admin: 03/27/24 11:40 Dose: 40 mg Propranolol HCl (Propranolol Hcl 20 Mg Tablet) 20 mg PO TID [facility]; Protocol Home Medications ?Medication ?Instructions ?Recorded ?Confirmed ?Last Taken ?Type diazepam 5 mg tablet 5 mg PO TID 03/27/24 03/27/24 Unknown History diphenhydramine HCl 50 mg capsule 50 mg PO BEDTIME PRN Insomnia 03/27/24 03/27/24 Unknown History gabapentin 800 mg tablet 800 mg PO TID 03/27/24 03/27/24 Unknown History olanzapine 10 mg tablet 10 mg PO BEDTIME 03/27/24 03/27/24 Unknown History oxybutynin chloride 5 mg tablet 5 mg PO BID 03/27/24 03/27/24 Unknown History pantoprazole 40 mg tablet,delayed 40 mg PO DAILY 03/27/24 03/27/24 Unknown History release propranolol 20 mg tablet 20 mg PO TID 03/27/24 03/27/24 Unknown History tolterodine 2 mg capsule,extended 2 mg PO DAILY 03/27/24 03/27/24 Unknown History release 24 hr (Detrol [facility]) Physical Exam Vital Signs and Narrative: Vital Signs: Last Vital Signs Temp 97.8 F 03/27/24 07:44 Pulse 88 03/27/24 07:44 Resp 16 03/27/24 07:44 BP 123/62 03/27/24 07:44 Pulse Ox 96 03/27/24 07:44 O2 Del Method Room Air 03/27/24 07:44 BMI result Body Mass Index 52.5 Appearing in no acute distress head is normocephalic atraumatic eyes pupils are PERRLA sclera is anicteric mouth throat mucous membranes are intact and moist lung sounds are clear to auscultation heart regular rate rhythm, clear S1, S2 positive bowel sounds, abdomen is soft, nontender neuro patient is alert x3, no focal deficits Cranial nerves 2-12 are grossly intact without focal deficits Left thigh wound from old scar, open area in divet, wound looks clean and dry Results Labs 03/27/24 07:26 Labs: Laboratory Results - last 24 hr 03/27/24 07:26 Anion Gap 13 Estim Creat Clear Calc 126.7 Estimated GFR > 60 Random Glucose 99 Calcium 9.7 Total Bilirubin 0.7 AST 24 ALT 33 Alkaline Phosphatase 89 Total Protein 7.6 Albumin 4.3 Assessment and Plan (1) Personality disorder: Status: Acute Plan 33-year-old man admitted to [facility] for psychiatric care Mental health Management as per admitting team GERD Continue PPI Left upper thigh wound acute on chronic wound looks clean wound care nurse consultation Keep wound clean and dry, change dressing daily and prn if saturated
[2024-03-27] MEDS: diazePAM 5 MG TABLET PO ×2 (15:19→21:16)
[2024-03-27] MEDS: Gabapentin 400 MG CAPSULE 800 MG PO ×2 (15:20→21:15)
[2024-03-27 15:23] VITALS: BP 133/85; PULSE 116; RESP 20; TEMP 36.7; O2SAT 95
[2024-03-27] MEDS: Propranolol HCL 20 MG TABLET PO ×2 (15:25→21:16)
[2024-03-27 21:10] VITALS: BP 132/84; PULSE 107; RESP 18; TEMP 36.7; O2SAT 96
[2024-03-27] MEDS: OLANZapine 10 MG TABLET PO (21:16)
[2024-03-27] MEDS: diphenhydrAMINE HCL 25 MG CAPSULE 50 MG PO (21:25)
[2024-03-28 08:25] LABS: Cholesterol 170 mg/dL (<200); HDL Cholesterol 32 mg/dL (>40); LDL Cholesterol Calculated 105 mg/dL (<100); Triglycerides 168 mg/dL (<150)
--- NOTE | 2024-03-28 08:56 | PC.NURSE ---
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 Wound care not available until 03/29/24
[2024-03-28 09:16] VITALS: BP 135/86; PULSE 114; RESP 18; TEMP 36.8; O2SAT 95
[2024-03-28] MEDS: Pantoprazole Sodium 20 MG TABLET.DR 40 MG PO (09:17)
[2024-03-28] MEDS: oxyBUTYnin chloride ER 5 MG TAB.ER.24 PO (09:18)
[2024-03-28] MEDS: Propranolol HCL 20 MG TABLET PO ×3 (09:18→20:54)
[2024-03-28] MEDS: Gabapentin 400 MG CAPSULE 800 MG PO ×3 (09:18→20:54)
[2024-03-28] MEDS: diazePAM 5 MG TABLET PO ×3 (09:19→20:54)
[2024-03-28] MEDS: Acetaminophen 325 MG TABLET 650 MG PO (09:21)
--- NOTE | 2024-03-28 13:19 | HO.PSYCHPN ---
Subjective Subjective Date of Service: 03/28/24 Reason For Visit: unspecified PTSD, personality D/O unspecified Subjective Notes: Conditional Voluntary Interim History: The nursing staff reported the patient complained of depression and anxiety. He ate 25% of his food. In the evening he reported that he was having pain due to his fibromyalgia and stating that he was hearing voices. On interview the patient denies new symptoms he requested to have his Benadryl standing not p.r.n.. Mental Status Exam Mental Status Exam Patient Appearance: Appropriate Patient Orientation: Person and Situation Level of Consciousness: Awake and Appropriate Patient Behavior: Guarded and Passive Mood Description: Withdrawn Affect Description: Labile Ability to Follow Directions: Fair Speech Pattern: Clear Hallucinations: None Delusions: Ideas of Reference Thought Process: Distracted and Slowed Thinking Thought Content: positive for [place] and positive for Poverty of Content Judgement: Poor Diagnostics Vital Signs (24Hr): Vital Signs - 24 hr 03/27/24 15:23 03/27/24 21:10 03/28/24 09:16 Temperature 98.1 F 98.1 F 98.3 F Pulse Rate 116 H 107 H 114 H Respiratory Rate 20 18 18 Blood Pressure 133/85 132/84 135/86 Pulse Oximetry 95 96 95 Oxygen Delivery Method Room Air Room Air BMI result Body Mass Index 52.5 Labs 03/27/24 07:26 Labs: Laboratory Results - last 48 hr 03/27/24 03/28/24 07:26 07:45 Sodium 142 Potassium 4.4 Chloride 105 Carbon Dioxide 28 Anion Gap 13 BUN 11 Creatinine 1.05 Estim Creat Clear Calc 126.7 Estimated GFR > 60 Random Glucose 99 Calcium 9.7 Total Bilirubin 0.7 AST 24 ALT 33 Alkaline Phosphatase 89 Total Protein 7.6 Albumin 4.3 Triglycerides 168 H Cholesterol 170 LDL Cholesterol, Calc 105 H HDL Cholesterol 32 L Medications Medications Current Medications Acetaminophen (Acetaminophen 325 Mg Tablet) 650 mg PO Q6H PRN PRN Reason: Headache/Pain Mild Scale (1-3) Last Admin: 03/28/24 09:21 Dose: 650 mg Al Hydroxide/Mg Hydroxide (Magnesium Hydrox/Alum Hydrox 30 Ml Oral.Susp) 30 ml PO Q6H PRN PRN Reason: Heartburn/Nausea Diazepam (Diazepam 5 Mg Tablet) 5 mg PO TID [facility] Last Admin: 03/28/24 09:19 Dose: 5 mg Diphenhydramine HCl (Diphenhydramine Hcl 25 Mg Capsule) 50 mg PO BEDTIME PRN PRN Reason: Insomnia Last Admin: 03/27/24 21:25 Dose: 50 mg Gabapentin (Gabapentin 400 Mg Capsule) 800 mg PO TID [facility] Last Admin: 03/28/24 09:18 Dose: 800 mg Hydroxyzine HCl (Hydroxyzine Hcl 25 Mg Tablet) 25 mg PO Q6H PRN PRN Reason: Anxiety Magnesium Hydroxide (Milk Of Magnesia 30 Ml Oral.Susp) 30 ml PO DAILY PRN PRN Reason: Constipation Nicotine Polacrilex (Nicotine Polacrilex 2 Mg Gum) 2 mg BUCCAL Q2H PRN PRN Reason: Nicotine Cravings Olanzapine (Olanzapine 10 Mg Tablet) 10 mg PO BEDTIME [facility] Last Admin: 03/27/24 21:16 Dose: 10 mg Oxybutynin Chloride (Oxybutynin Chloride Er 5 Mg Tab.Er.24) 5 mg PO DAILY [facility] Last Admin: 03/28/24 09:18 Dose: 5 mg Pantoprazole Sodium (Pantoprazole Sodium 20 Mg Tablet.Dr) 40 mg PO DAILY [facility] Last Admin: 03/28/24 09:17 Dose: 40 mg Propranolol HCl (Propranolol Hcl 20 Mg Tablet) 20 mg PO TID [facility]; Protocol Last Admin: 03/28/24 09:18 Dose: 20 mg Allergies Allergies Allergy/AdvReac Type Severity Reaction Status Date / Time quetiapine [From Seroquel] Allergy Swelling Verified 11/25/22 23:06 trazodone Allergy Swelling Verified 11/25/22 23:06 fluoxetine [From Prozac] AdvReac Dry Mucus Verified 03/27/24 03:24 Membranes Assessment & Plan Assessment & Plan (1) Personality disorder: Status: Acute Code(s): F60.9 - Personality disorder, unspecified Plan 33-year-old man admitted to for psychiatric care Mental health Management as per admitting team GERD Continue PPI Left upper thigh wound acute on chronic wound looks clean wound care nurse consultation Keep wound clean and dry, change dressing daily and prn if saturated Plan 1. Gather more collateral information. 2. Continue with gabapentin, Zyprexa and other medications. 3. Change Benadryl to standing instead of p.r.n.. 4. Kitchen restrictions since the patient self harms in a manipulative fashion. Reason for continued inpatient stay Substantial Risk for: inability to function, rapid decompensation and med/psych decompensation Time Spent With Patient Time: Total time managing care of this patient today __20__ minutes.
[2024-03-28 14:38] VITALS: BP 128/69; PULSE 120
[2024-03-28 20:52] VITALS: BP 119/73; PULSE 106; RESP 16; TEMP 36.9; O2SAT 96
[2024-03-28] MEDS: OLANZapine 10 MG TABLET PO (20:54)
[2024-03-28] MEDS: diphenhydrAMINE HCL 25 MG CAPSULE 50 MG PO (20:54)
[2024-03-29] MEDS: hydrOXYzine HCL 25 MG TABLET PO ×2 (02:04→20:22)
[2024-03-29 08:16] VITALS: BP 136/72; PULSE 102; RESP 20; TEMP 37.3; O2SAT 96
[2024-03-29] MEDS: oxyBUTYnin chloride ER 5 MG TAB.ER.24 PO (08:18)
[2024-03-29] MEDS: diazePAM 5 MG TABLET PO ×3 (08:18→20:22)
[2024-03-29] MEDS: Propranolol HCL 20 MG TABLET PO ×3 (08:19→20:22)
[2024-03-29] MEDS: Gabapentin 400 MG CAPSULE 800 MG PO ×3 (08:19→20:20)
[2024-03-29] MEDS: Pantoprazole Sodium 20 MG TABLET.DR 40 MG PO (08:50)
--- NOTE | 2024-03-29 10:18 | P.PNPSI_ITS ---
Subjective Subjective Date of Service: 03/29/24 Reason For Visit: unspecified PTSD, personality D/O unspecified Subjective Notes: Section 12B Interim History: 12b up on 04/01/24. Met with pt, licensed master social workerEvelia and OT, [place], ramiro. Pt discussed feeling depressed d/t their current living situation and the anniversary of miscarriage in May. Patient expressed frustration with mental health system in [place] and how [place] being more helpful in obtaining a retirement. Social work informed pt, that the hospital is unable to help with housing but can assist in giving information on shelters in the area. pt denies SI/HI/VH/AH. Later in the day, pt requested to be discharged d/t his [employer] getting him a bed at a program ; licensed master social worker, Evelia, to obtain more information. Medication Compliance: Yes Side effects from medications: No Mental Status Exam Mental Status Exam Narrative: Pt is alert and oriented; behavior is cooperative; dressed in casual attire; mood is described as frustrated ; eye contact appropriate; Speech is normal rate, volume and not pressured; thought process is organized and goal directed; Thought content is on housing; denies SI/HI/VH/AH Diagnostics Vital Signs (24Hr): Vital Signs - 24 hr 03/28/24 14:38 03/28/24 20:52 03/29/24 08:16 Temperature 98.5 F 99.1 F Pulse Rate 120 H 106 H 102 H Respiratory Rate 16 20 Blood Pressure 128/69 119/73 136/72 Pulse Oximetry 96 96 Oxygen Delivery Method Room Air Room Air BMI result Body Mass Index 52.5 Labs 03/27/24 07:26 Labs: Laboratory Results - last 48 hr 03/28/24 07:45 Triglycerides 168 H Cholesterol 170 LDL Cholesterol, Calc 105 H HDL Cholesterol 32 L Medications Medications Current Medications Acetaminophen (Acetaminophen 325 Mg Tablet) 650 mg PO Q6H PRN PRN Reason: Headache/Pain Mild Scale (1-3) Last Admin: 03/28/24 09:21 Dose: 650 mg Al Hydroxide/Mg Hydroxide (Magnesium Hydrox/Alum Hydrox 30 Ml Oral.Susp) 30 ml PO Q6H PRN PRN Reason: Heartburn/Nausea Diazepam (Diazepam 5 Mg Tablet) 5 mg PO TID [facility] Last Admin: 03/29/24 08:18 Dose: 5 mg Diphenhydramine HCl (Diphenhydramine Hcl 25 Mg Capsule) 50 mg PO BEDTIME [facility] Last Admin: 03/28/24 20:54 Dose: 50 mg Gabapentin (Gabapentin 400 Mg Capsule) 800 mg PO TID [facility] Last Admin: 03/29/24 08:19 Dose: 800 mg Hydroxyzine HCl (Hydroxyzine Hcl 25 Mg Tablet) 25 mg PO Q6H PRN PRN Reason: Anxiety Last Admin: 03/29/24 02:04 Dose: 25 mg Magnesium Hydroxide (Milk Of Magnesia 30 Ml Oral.Susp) 30 ml PO DAILY PRN PRN Reason: Constipation Nicotine Polacrilex (Nicotine Polacrilex 2 Mg Gum) 2 mg BUCCAL Q2H PRN PRN Reason: Nicotine Cravings Olanzapine (Olanzapine 10 Mg Tablet) 10 mg PO BEDTIME [facility] Last Admin: 03/28/24 20:54 Dose: 10 mg Oxybutynin Chloride (Oxybutynin Chloride Er 5 Mg Tab.Er.24) 5 mg PO DAILY [facility] Last Admin: 03/29/24 08:18 Dose: 5 mg Pantoprazole Sodium (Pantoprazole Sodium 20 Mg Tablet.Dr) 40 mg PO DAILY [facility] Last Admin: 03/29/24 08:50 Dose: 40 mg Propranolol HCl (Propranolol Hcl 20 Mg Tablet) 20 mg PO TID [facility]; Protocol Last Admin: 03/29/24 08:19 Dose: 20 mg Allergies Allergies Allergy/AdvReac Type Severity Reaction Status Date / Time quetiapine [From Seroquel] Allergy Swelling Verified 11/25/22 23:06 trazodone Allergy Swelling Verified 11/25/22 23:06 fluoxetine [From Prozac] AdvReac Dry Mucus Verified 03/27/24 03:24 Membranes Assessment & Plan Assessment & Plan (1) Mood disorder: Status: Acute Code(s): F39 - Unspecified mood [affective] disorder (2) Personality disorder: Status: Acute Code(s): F60.9 - Personality disorder, unspecified Plan The patient is a 33-year-old male transgender female to male, resident relocated in [place] from [place] that used to be on group homes and had several admissions into the hospital for self-harming behavior and psychosis. The patient stated that he is feeling suicidal and he was looking for help. While he was in the unit he open with a fork a wanted he has on his LEs stating that the voices were forced into do that. 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 Plan 1. Gather collateral information. 2. Continue with Zyprexa gabapentin and Valium as per med reconciliation form. 3. Referral to hospitalist for medical clearance. 4. Reassessment with results. 5. 5 minute checks but the patient is restricted from the kitchen to avoid self- harming behavior. 03/29: 12b up on 04/01/24. Met with pt, licensed master social workerEvelia and OT, [place], ramiro. Pt discussed feeling depressed d/t their current living situation and the anniversary of miscarriage in May. Patient expressed frustration with mental health system in [place] and how [place] being more helpful in obtaining a retirement. Social work informed pt, that the hospital is unable to help with housing but can assist in giving information on shelters in the area. pt denies SI/HI/VH/AH. Later in the day, pt requested to be discharged d/t his Staple [employer] getting him a bed at a program ; licensed master social workerEvelia, to obtain more information Patient educated on: diagnosis and medication risk/benefits Reason for continued inpatient stay Substantial Risk for: med/psych decompensation Time Spent With Patient Time: Total time managing care of this patient today _20___ minutes.
[2024-03-29] MEDS: Acetaminophen 325 MG TABLET 650 MG PO (12:48)
[2024-03-29 14:58] VITALS: BP 133/67; PULSE 95; RESP 20; O2SAT 95
[2024-03-29 20:00] VITALS: BP 123/85; PULSE 100; RESP 16; TEMP 36.2; O2SAT 96
[2024-03-29] MEDS: diphenhydrAMINE HCL 25 MG CAPSULE 50 MG PO (20:21)
[2024-03-29] MEDS: OLANZapine 10 MG TABLET PO (20:21)
[2024-03-30 07:44] VITALS: BP 131/75; PULSE 101; RESP 16; TEMP 36.6; O2SAT 95
[2024-03-30] MEDS: diazePAM 5 MG TABLET PO (08:22)
[2024-03-30] MEDS: oxyBUTYnin chloride ER 5 MG TAB.ER.24 PO (08:22)
[2024-03-30] MEDS: Propranolol HCL 20 MG TABLET PO (08:22)
[2024-03-30] MEDS: Pantoprazole Sodium 20 MG TABLET.DR 40 MG PO (08:23)
[2024-03-30] MEDS: Gabapentin 400 MG CAPSULE 800 MG PO (08:24)
--- NOTE | 2024-03-30 10:31 | P.DS_ITS ---
DS: Providers Provider Date of Service: 03/30/24 Date of admission: 03/27/24 01:14 Date of discharge: 03/30/24 Primary care physician: Petty Fallon MD Attending physician on admission: Jesse Young Consults: 03/27/24 01:18 Consult to Hospitalist Routine Comment: Consulting Provider: [facility] Hospitalists Reason For Exam: direct admission. SELF HARMING, LESION ON LEG 03/27/24 15:18 Consult to Wound Care Routine Reason for consultation: Left thigh wound Attending physician on discharge: Ivan Cottrell Discharging clinician: Isabelle Gerardo DS: Diagnosis Discharge Diagnosis (1) Mood disorder: Status: Acute (2) Personality disorder: Status: Acute DS: Medications Discharge Medications Home Medications: Home Medications ?Medication ?Instructions ?Recorded ?Confirmed diazepam 5 mg tablet 5 mg PO TID 03/27/24 03/27/24 diphenhydramine HCl 50 mg capsule 50 mg PO BEDTIME PRN Insomnia 03/27/24 03/27/24 gabapentin 800 mg tablet 800 mg PO TID 03/27/24 03/27/24 olanzapine 10 mg tablet 10 mg PO BEDTIME 03/27/24 03/27/24 oxybutynin chloride 5 mg tablet 5 mg PO BID 03/27/24 03/27/24 pantoprazole 40 mg tablet,delayed 40 mg PO DAILY 03/27/24 03/27/24 release propranolol 20 mg tablet 20 mg PO TID 03/27/24 03/27/24 tolterodine 2 mg capsule,extended 2 mg PO DAILY 03/27/24 03/27/24 release 24 hr (Detrol LA) Mental Status Exam Mental Status Exam Narrative: Pt is alert and oriented; behavior is cooperative and calm; dressed in casual attire; mood is described as good ; eye contact appropriate; Speech is normal rate, volume and not pressured; thought process is organized and goal directed; Thought content is on tx; denies SI/HI/VH/AH. Data Data Completed and Pending Completed studies during hospitalization [Text1]: 03/27/24 03/28/24 07:26 07:45 Sodium 142 Potassium 4.4 Chloride 105 Carbon Dioxide 28 Anion Gap 13 BUN 11 Creatinine 1.05 Estim Creat Clear Calc 126.7 Estimated GFR > 60 Random Glucose 99 Calcium 9.7 Total Bilirubin 0.7 AST 24 ALT 33 Alkaline Phosphatase 89 Total Protein 7.6 Albumin 4.3 Triglycerides 168 H Cholesterol 170 LDL Cholesterol, Calc 105 H HDL Cholesterol 32 L DS: Summary Hospital Course Hospital Course: The patient is a 33-year-old transgender male, currently homeless, recently relocated from [place] to [place] a week ago with a past history of mood disorder, several psychiatric admissions and self-harming behavior. The patient reported [place] [facility] [place] and moved to live with family [place]. He spent a few days in a fci and later on at another facility. He walking to the emergency room of [facility] in [facility] complaining of suicidal ideation. The patient reported that he has multiple personality disorder, that he usually gets suicidal and self harms and he admitted that he had been admitted several times into the hospital for self- harming behavior. He was assessed by crisis and transferring to this facility for psychiatric stabilization. While he was in the unit, after the assessment of nursing, the patient grabbed a fork and he opened a wound that he had on his leg stating that the devil and the voices were telling to do that. Even though that he complained of psychotic symptoms the patient is well oriented, able to respond to redirection and without a clear evidence of thought process disorder. During the intake interview, I explained him that since he had been self-harming we can not allow him to be in the kitchen by himself, we decided to put some safety measures to avoid self-harming and I contact the hospitalist team for assessment of his lesion in the leg. The patient stated that he did not do this for attention seeking or secondary gain since and he was very worried about housing and other entitlements. He stated that he feels worse since the disease close to the 8th anniversary of a miscarriage that he had. We did a medication reconciliation and he had been taking gabapentin Zyprexa and Valium. We are keeping him on 5 minute checks. The patient is a 33-year-old male transgender female to male, resident relocated in [place] from [place] that used to be on group homes and had several admissions into the hospital for self-harming behavior and psychosis. The patient stated that he is feeling suicidal and he was looking for help. While he was in the unit he open with a fork a wanted he has on his LEs stating that the voices were forced into do that. 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 Plan 1. Gather collateral information. 2. Continue with Zyprexa gabapentin and Valium as per med reconciliation form. 3. Referral to hospitalist for medical clearance. 4. Reassessment with results. 5. 5 minute checks but the patient is restricted from the kitchen to avoid self- harming behavior. The nursing staff reported the patient complained of depression and anxiety. He ate 25% of his food. In the evening he reported that he was having pain due to his fibromyalgia and stating that he was hearing voices. On interview the patient denies new symptoms he requested to have his Benadryl standing not p.r.n. 12b up on 04/01/24. Met with pt, foster care social workerEvelia and OT, ramiro Ho. Pt discussed feeling depressed d/t their current living situation and the anniversary of miscarriage in May. Patient expressed frustration with mental health system in [place] and how [place] being more helpful in [place]. Social work informed pt, that the hospital is unable to help with housing but can assist in giving information on shelters in the area. pt denies SI/HI/VH/AH. Later in the day, pt requested to be discharged d/t his [employer] getting him a bed at a program ; foster care social worker, Evelia, to obtain more information. Patient reports feeling at baseline ; denies SI/HI/VH/AH. Pt reports he is looking forward to leaving and returning to [place], [place]; pt in contact with his final installer inspector. He plans on following up with his outpatient providers at [facility]. Status at Discharge Cognitive/behavioral status at discharge: Patient has insight and demonstrates good judgment in terms of wanting to pursue treatment. Patient has a safety plan that includes presenting to the closest ER or calling 911 if feeling unsafe. Functional status at discharge: independent ambulation Overall status at discharge: patient is back to baseline Time Spent with Patient Time attestation: Total time managing care of this patient today _20___ minutes. Time spent: Less than 30 minutes Discharge Plan Discharge Anticipated Discharge Date/Time: 03/30/24 11:00 Patient Disposition: Home, Self-Care Discharge Diagnosis: Mood d/o, Borderline personality d/o Referrals: Petty Fallon MD [Primary Care Provider] - 04/01/24 9:15 am (03-30-24 You have a current appt scheduled with Dr. Petty Fallon coming up on 04-01-24 @ 9:15am. They will be including your discharge follow up within that appt.) Discharge Medications: Continued diazepam 5 mg Tablet 5 mg PO TID Patient Comments: Last filled 03/25/24 for 15 day supply from [facility] [phone] diphenhydramine HCl 50 mg Capsule 50 mg PO BEDTIME PRN (Reason: Insomnia) Rx Instructions: 15 day supply filled 03/20/24 at [facility] Scripts transferred to [facility] from [facility] olanzapine 10 mg Tablet 10 mg PO BEDTIME Patient Comments: [facility] filled 7 day supply 03/19/24 Scripts transferred to [facility] from [facility] gabapentin 800 mg Tablet 800 mg PO TID Patient Comments: 7 day supply filled 03/18/24 Scripts transferred to [facility] from [facility] propranolol 20 mg Tablet 20 mg PO TID Patient Comments: [facility] filled 7 day supply filled 03/18/24 Scripts transferred to [facility] from [facility] oxybutynin chloride 5 mg Tablet 5 mg PO BID Patient Comments: 7 day supply filled 03/18/24 at [facility] Scripts transferred to [facility] from [facility] tolterodine [Detrol LA] 2 mg Capsule,Extended Release 24hr 2 mg PO DAILY Patient Comments: [facility] reports this as new script [facility] did not report on record pantoprazole 40 mg Tablet,Delayed Release (Dr/Ec) 40 mg PO DAILY Patient Comments: [facility] filled 7 day supply filled 03/18/24 Scripts transferred to [facility] from [facility] Discharge Orders: Discharge Order (Routine); Ordered 03/30/24 Ordered By: Isabelle Gerardo Diet: Regular diet Activity on Discharge: As tolerated Stand Alone Forms: Patient Portal Discharge page, Community Support Print Language: Bahraini Care Plan Goals: Maintain mood and safe behaviors Take medications as prescribed Practice coping skills Continue with outpatient providers and reach out to them as needed Health Concerns: Mood stability and behaviors Plan of Treatment: Follow up with your PCP, psychiatric provider and other outpatient providers regarding above concerns Take medications as prescribed Assessment: Patient has insight and demonstrates good judgment in terms of wanting to pursue treatment. Patient has a safety plan that includes presenting to the closest ER or calling 911 if feeling unsafe. Discharge Date/Time: 03/30/24 10:50
== END 2024-03-30 10:50 | disposition home or self-care (01) | DRG 883 ==
PROVIDERS: Psychiatry & Neurology Psychiatry; Admitting Provider Psychiatry & Neurology Psychiatry; PCP Internal Medicine; Responsible Provider Registered Nurse; Visit Provider Psychiatry & Neurology Psychiatry
DX: F60.9 Personality disorder, unspecified (principal); Z59.02 Unsheltered homelessness; F39 Unspecified mood [affective] disorder; F64.0 Transsexualism; S71.102A Unspecified open wound, left thigh, initial encounter; X58.XXXA Exposure to other specified factors, initial encounter; K21.9 Gastro-esophageal reflux disease without esophagitis; Z79.899 Other long term (current) drug therapy
CPT/HCPCS: 36415; 80053; 80061

== ENCOUNTER → 2024-03-27 01:14 | Outpatient (BNV) | payer MEDICARE, MEDICAID, SELFPAY | PROVIDERS: Admitting Provider Psychiatry & Neurology Psychiatry; PCP Internal Medicine; Visit Provider Psychiatry & Neurology Psychiatry | DX: F60.9 Personality disorder, unspecified (principal); F39 Unspecified mood [affective] disorder | CPT/HCPCS: 99231; 99232; 99238 ==

== ENCOUNTER → 2024-03-27 01:14 | Outpatient (BNV) | payer MEDICARE, MEDICAID, SELFPAY | PROVIDERS: Admitting Provider Psychiatry & Neurology Psychiatry; PCP Internal Medicine; Visit Provider Nurse Practitioner Acute Care | DX: Z02.2 Encounter for examination for admission to residential institution (principal) | CPT/HCPCS: 99429 ==